=== PATIENT | male | born 1985 | race African-American/Black ===

== ENCOUNTER 2018-07-20 23:17 | Emergency (ER) | payer MEDICAID ==
[~2018-07-20] VITALS: Ht 188 cm; Wt 77.1 kg
[~2018-07-20 23:17] MED LIST: ALBU90OI6 INH; AMOX500 PO; ANTOXYBENA LEFTEAR; Antivert25 MG PO; Bactrim Ds Tab1 EACH PO; CLAR500 PO; CODGUAEL PO; DIPATR PO; LORA1 PO; OMEP20ER PO; OMEP40CA12 PO; OXYACE5T PO; Omeprazole20 M1; PROC10 PO; PROM25 PO; Prednisone20 MG PO; RXOXYACE PO; Vistaril25 MG PO; Zithromax250 MG PO; Zofran Odt8 MG SL; Zofran4 MG PO
[2018-07-21] MEDS ORDERED: Omeprazole20 M1 PO (00:09)
== END 2018-07-21 01:16 | disposition home or self-care (01) ==
LOC: ER 23:17
DX: J02.0 Streptococcal pharyngitis (principal); Z79.899 Other long term (current) drug therapy; F17.200 Nicotine dependence, unspecified, uncomplicated
CPT/HCPCS: 87430; 96372; 99283-25; J0561; J1100

== ENCOUNTER 2020-04-12 20:04 | Emergency (ER) | payer SELFPAY ==
[~2020-04-12] VITALS: Ht 188 cm; Wt 74.8 kg
[~2020-04-12 20:04] MED LIST changes: +Omeprazole20 M1 PO
== END 2020-04-12 21:26 | disposition home or self-care (01) ==
LOC: ER 20:04
DX: S20.212A Contusion of left front wall of thorax, initial encounter (principal); S80.12XA Contusion of left lower leg, initial encounter; S80.11XA Contusion of right lower leg, initial encounter; Z79.899 Other long term (current) drug therapy; W01.198A Fall on same level from slipping, tripping and stumbling with subsequent striking against other object, initial encounter
CPT/HCPCS: 71046; 99283-25; A9270

== ENCOUNTER 2020-07-26 23:12 | Emergency (ER) | payer SELFPAY ==
[~2020-07-26] VITALS: Ht 188 cm; Wt 77.1 kg
[2020-07-26 23:50] LABS: BASOPHILS ABSOLUTE AUTO 0.08 K/mm3 (0.00-0.23); BASOPHILS PERCENT AUTO 1 % (0-2); EOSINOPHILS ABSOLUTE AUTO 0.12 K/mm3 (0.00-0.68); EOSINOPHILS PERCENT AUTO 1 % (0-6); Hematocrit 38.9 % (37.0-53.0); Hemoglobin 13.2 g/dL (13.5-17.5); Mean Corpuscular HGB 32.4 pg (26.0-34.0); Mean Corpuscular HGB Conc 33.9 g/dL (31.5-36.5); Mean Corpuscular Volume 96 fL (80-100); Mean Platelet Volume 9.9 fL (9.1-12.4); Platelet Count 322 K/mm3 (150-400); RDW Coefficient Variation 13.7 % (11.7-14.2); RDW Standard Deviation 48.2 fL (35.1-46.3); Red Blood Cell Count 4.07 M/mm3 (4.30-5.90); White Blood Cell Count 9.86 K/mm3 (4.00-11.30)
[2020-07-26 23:52] LABS: IMMATURE GRAN ABSOLUTE AUTO 0.02 K/mm3 (0.00-0.10); IMMATURE GRAN PERCENT AUTO 0 % (0-1); LYMPHOCYTES ABSOLUTE AUTO 3.55 K/mm3 (0.84-5.20); LYMPHOCYTES PERCENT AUTO 36 % (21-46); MONOCYTES ABSOLUTE AUTO 1.02 K/mm3 (0.16-1.47); MONOCYTES PERCENT AUTO 10 % (4-13); NEUTROPHILS ABSOLUTE AUTO 5.07 K/mm3 (1.96-9.15); NEUTROPHILS PERCENT AUTO 52 % (41-73)
[2020-07-26 23:57] LABS: Source, Urine Clean Catch
[2020-07-27 00:04] LABS: Bilirubin, Urine Neg (Neg); Blood, Urine 3+ (Neg); Glucose Qualitative, Urine Neg (Neg); Ketones, Urine Neg (Neg); Leukocyte Esterase, Urine 3+ (Neg); Nitrite, Urine Neg (Neg); Protein, Urine 2+ (Neg); Urobilinogen, Urine NORM (Normal); pH, Urine 6.5 (5.0-8.0)
[2020-07-27 00:09] LABS: Alanine Aminotransfer (ALT/SGP 30 U/L (12-78); Albumin, Blood 3.8 g/dL (3.4-5.0); Alk Phos 85 U/L (50-136); Anion Gap 6 mmol/L (6-16); Aspartate Aminotrans (AST/SGOT 23 U/L (12-37); Bilirubin, Total <0.1 mg/dL (0.1-1.0); Blood Urea Nitrogen 17 mg/dL (8-24); Bun/Creatinine Ratio 15.3 (12.0-20.0); CO2, Blood 29 mmol/L (21-32); Calcium, Blood 9.3 mg/dL (8.5-10.1); Chloride, Blood 105 mmol/L (98-108); Creatinine, Blood 1.11 mg/dL (0.60-1.20); Glomerular Filtration Rate >60 (60-); Glucose, Blood 118 mg/dL (70-99); Potassium, Blood 3.5 mmol/L (3.5-5.5); Sodium, Blood 140 mmol/L (136-145); Total Protein, Blood 7.8 g/dL (6.4-8.2)
[2020-07-27 00:19] LABS: Appearance, Urine Hazy (Clear); Bacteria Mod /hpf; Color, Urine Yellow (P-Yellow); Red Blood Cells, Urine Rare /hpf (0-2); Squamous Epithelial Cells Not Seen /hpf (Few); White Blood Cells, Urine TNTC /hpf (0-5)
[2020-07-27] MEDS ORDERED: Vibramycin100 MG PO (02:24)
== END 2020-07-27 02:59 | disposition home or self-care (01) ==
LOC: ER 23:12
PROVIDERS: Emergency Medicine
DX: N39.0 Urinary tract infection, site not specified (principal)
CPT/HCPCS: 36415; 80053; 81001; 83690; 85025; 87077; 87086; 87185; 96372; 99283; A9270; J0696

== ENCOUNTER 2024-11-11 20:22 | Emergency (ER) | payer OTHER ==
[~2024-11-11] VITALS: Ht 188 cm; Wt 74.8 kg
[~2024-11-11 20:22] MED LIST changes: +IBU600 MG PO; +Veetids 500500 MG PO; +Vibramycin100 MG PO
[2024-11-11 20:31] VITALS: BP 133/82
[2024-11-15] MEDS ORDERED: AMOX500 PO (11:14)
== END 2024-11-11 21:51 ==
LOC: ER 20:22
DX: J02.9 Acute pharyngitis, unspecified (principal)
CPT/HCPCS: 87081; 87147; 87430; 99283